=== PATIENT | female | born 1965 | race American Indian/Alaskan Native ===

== ENCOUNTER 2016-12-25 15:52 | Emergency (ER) | payer BC ==
--- NOTE | 2016-12-25 18:22 | Emergency Department Report ---
Chief Complaint: Abdominal Pain Stated Complaint: PAINFUL URINANTION W/ BLOOD/CHILLS Time Seen by Provider: 12/25/16 18:21 - HPI History of Present Illness: This is a 51-year-old female well-nourished well-developed here reporting that she is having burning urination 2 days with some blood in her urine. Last menstrual period was 12/08/2016. She is having pain in her lower abdomen at 10 out of 10 and its crampy. Patient is still getting her menstrual period but it was documented on triage chart that her last menstrual was 05/19/2013. She reports fever and chills. Denies any nausea or vomiting. No [id number] medication taken. - ROS Review of Systems: All systems are negative unless stated in HPI above - Exam Vital Signs: Vital Signs 12/25/16 17:23 Temperature 99.2 F Pulse Rate 79 Blood Pressure 170/97 O2 Sat by Pulse 98 Oximetry Respirations at 17 Physical Exam: Gen.: This is a 51-year-old female well-nourished well-developed in no acute distress Abdomen: Soft, tender to palpate pelvic area, no guarding or rebound tenderness. Positive bowel sounds in all quadrants and no CVA tenderness bilaterally. MSE screening note: Focused history and physical exam performed. Due to findings the following was ordered:see mdm ED Medical Decision Making - Medical Decision Making MDM: Patient screened by provider in triage area. Appropriate protocol initiated and patient to be seen in main ED by Dr. LIRA Disposition for MSE Condition: Stable Instructions: Abdominal Pain (ED)
[2016-12-25 23:00] LABS: Basophils % (Auto) 0.7 % (0.0-1.8); Eosinophils % (Auto) 1.4 % (0.0-4.3); Hematocrit 31.1 % (30.3-42.9); Hemoglobin 9.7 gm/dl (10.1-14.3); Mean Corpuscular HGB Conc 31 % (30-34); Mean Corpuscular Hemoglobin 23 pg (28-32); Mean Corpuscular Volume 74 fl (79-97); Platelet Count 275 K/mm3 (140-440); Red Blood Count 4.18 M/mm3 (3.65-5.03); Red Cell Distribution Width 18.8 % (13.2-15.2); White Blood Count 13.2 K/mm3 (4.5-11.0)
[2016-12-25 23:12] LABS: Alanine Aminotransferase 11 units/L (7-56); Albumin 3.9 g/dL (3.9-5); Albumin/Globulin Ratio 0.9 %; Alkaline Phosphatase 125 units/L (35-129); Anion Gap 17 mmol/L; BUN/Creatinine Ratio 13; Blood Urea Nitrogen 9 mg/dL (7-17); Calcium 8.9 mg/dL (8.4-10.2); Carbon Dioxide 19 mmol/L (22-30); Chloride 103.3 mmol/L (98-107); Glucose 91 mg/dL (65-100); Lipase 22 units/L (13-60); Potassium 4.1 mmol/L (3.6-5.0); Sodium 135 mmol/L (137-145); Total Protein 8.2 g/dL (6.3-8.2)
--- NOTE | 2016-12-26 07:34 | Emergency Department Report ---
ED Abdominal Pain HPI - General Chief Complaint: Abdominal Pain Stated Complaint: PAINFUL URINANTION W/ BLOOD/CHILLS Time Seen by Provider: 12/25/16 18:21 Source: patient, family Mode of arrival: Ambulatory Limitations: No Limitations - History of Present Illness Initial Comments: This is a 51-year-old female well-nourished well-developed here reporting that she is having burning urination 2 days with some blood in her urine. Last menstrual period was 12/08/2016. She is having pain in her lower abdomen at 10 out of 10 and its crampy. Patient is still getting her menstrual period but it was documented on triage chart that her last menstrual was 05/19/2013. She reports fever and chills. Denies any nausea or vomiting. No iteg-[id number] medication taken. She was able to tolerate oral liquids well. Denies any back pain.No [id number] medication taken. Denies any medical problem. MD Complaint: abdominal pain Onset/Timin -: days(s) Location: LLQ Radiation: none Migration to: no migration Severity: severe Severity scale (0 -10): 10 Quality: cramping, burning Consistency: intermittent Improves With: nothing Worsens With: nothing Context: other (Pt beleives uti) Associated Symptoms: fever, chills, dysuria, hematuria. denies: nausea, vomiting, diarrhea, constipation, hematemesis, hematochezia, melena, anorexia, syncope - Related Data LMP Date: 12/08/16 Previous Rx's Medication Instructions Recorded Last Taken Type HYDROcodone/APAP 5-325 [[place] 1 each PO Q8HR PRN #20 tablet 06/15/13 Unknown Rx 5/325 mg] Pantoprazole [Protonix] 20 mg PO BID #60 tablet. 06/15/13 Unknown Rx Naproxen [Naprosyn TAB] 500 mg PO BID PRN #10 tablet 12/26/16 Unknown Rx Nitrofurantoin Cecil/M-Cryst 100 mg PO Q12HR #14 capsule 12/26/16 Unknown Rx [Macrobid CAP] Phenazopyridine [Pyridium] 200 mg PO TID PRN #9 tab 12/26/16 Unknown Rx Allergies Allergy/AdvReac Type Severity Reaction Status Date / Time No Known Allergies Allergy Unverified 06/15/13 07:52 ED Review of Systems ROS: Stated complaint: PAINFUL URINANTION W/ BLOOD/CHILLS Other details as noted in HPI Comment: All other systems reviewed and negative Constitutional: chills, fever. denies: malaise, weakness Respiratory: no symptoms reported Cardiovascular: denies: chest pain, palpitations, dyspnea on exertion, edema, syncope, paroxysmal nocturnal dyspnea Gastrointestinal: abdominal pain. denies: nausea, vomiting, diarrhea, constipation, hematemesis, melena, hematochezia Genitourinary: dysuria, hematuria. denies: urgency, frequency, discharge, abnormal menses Musculoskeletal: denies: back pain, joint swelling, arthralgia, myalgia Skin: denies: rash Neurological: denies: headache, weakness, numbness, paresthesias, confusion, abnormal gait, vertigo ED Past Medical Hx - Past Medical History Previous Medical History?: Yes - Surgical History Past Surgical History?: No - Family History Family history: hypertension - Social History Smoking Status: Never Smoker Substance Use Type: None Other Social History: Patient divorce of his family - Medications Home Medications: Home Medications Medication Instructions Recorded Confirmed Last Taken Type HYDROcodone/APAP 5-325 [[place] 1 each PO Q8HR PRN #20 tablet 06/15/13 Unknown Rx 5/325 mg] Pantoprazole [Protonix] 20 mg PO BID #60 tablet. 06/15/13 Unknown Rx Naproxen [Naprosyn TAB] 500 mg PO BID PRN #10 tablet 12/26/16 Unknown Rx Nitrofurantoin Cecil/M-Cryst 100 mg PO Q12HR #14 capsule 12/26/16 Unknown Rx [Macrobid CAP] Phenazopyridine [Pyridium] 200 mg PO TID PRN #9 tab 12/26/16 Unknown Rx ED Physical Exam - General Limitations: No Limitations General appearance: alert, in no apparent distress - Head Head exam: Present: atraumatic, normocephalic, normal inspection - Eye Eye exam: Present: normal appearance, PERRL, EOMI. Absent: periorbital swelling , periorbital tenderness Pupils: Present: normal accommodation - ENT ENT exam: Present: normal exam, normal orophraynx, mucous membranes moist, TM's normal bilaterally, normal external ear exam - Neck Neck exam: Present: normal inspection, full ROM. Absent: tenderness, meningismus, lymphadenopathy - Respiratory Respiratory exam: Present: normal lung sounds bilaterally. Absent: respiratory distress, wheezes, rales, rhonchi, stridor, chest wall tenderness, decreased breath sounds, prolonged expiratory - Cardiovascular Cardiovascular Exam: Present: regular rate, normal rhythm, normal heart sounds. Absent: systolic murmur, diastolic murmur - GI/Abdominal GI/Abdominal exam: Present: soft, tenderness (left lower quadrant), normal bowel sounds. Absent: distended, guarding, rebound, rigid, hypoactive bowel sounds, organomegaly, mass, bruit, pulsatile mass, hernia - Extremities Exam Extremities exam: Present: normal inspection, full ROM, normal capillary refill. Absent: tenderness, pedal edema, joint swelling, calf tenderness - Back Exam Back exam: Present: normal inspection, full ROM. Absent: tenderness, CVA tenderness (R), CVA tenderness (L), muscle spasm, paraspinal tenderness, vertebral tenderness, rash noted - Neurological Exam Neurological exam: Present: alert, oriented X3, normal gait, reflexes normal. Absent: motor sensory deficit - Psychiatric Psychiatric exam: Present: normal affect, normal mood - Skin Skin exam: Present: warm, dry, intact, normal color. Absent: rash ED Course Vital Signs 12/25/16 12/26/16 12/26/16 17:23 00:37 07:50 Temperature 99.2 F 99.2 F 99.1 F Pulse Rate 79 106 H 91 H Respiratory 18 18 Rate Blood Pressure 170/97 158/91 Blood Pressure 152/95 [Left] O2 Sat by Pulse 98 99 100 Oximetry 12/26/16 08:04 Temperature Pulse Rate Respiratory 18 Rate Blood Pressure Blood Pressure [Left] O2 Sat by Pulse 100 Oximetry - Reevaluation(s) Reevaluation #1: 12/26/16 09:03 Patient and found to have urinary tract infection and she was orally challenged in the emergency room and able to tolerate liquids well. Patient had uneventful ED stay. She received Rocephin 1 g IM in emergency room for cystitis with hematuria and she also receive [place] 5/325 2 tablets by mouth. ED Medical Decision Making - Lab Data Result diagrams: 12/25/16 22:34 12/25/16 22:34 Lab Results 12/25/16 12/25/16 12/25/16 Range/Units 22:34 22:34 22:34 WBC 13.2 H (4.5-11.0) K/mm3 RBC 4.18 (3.65-5.03) M/mm3 Hgb 9.7 L (10.1-14.3) gm/dl Hct 31.1 (30.3-42.9) % MCV 74 L (79-97) fl MCH 23 L (28-32) pg MCHC 31 (30-34) % RDW 18.8 H (13.2-15.2) % Plt Count 275 (140-440) K/mm3 Lymph % (Auto) 16.7 (13.4-35.0) % Cecil % (Auto) 5.6 (0.0-7.3) % Eos % (Auto) 1.4 (0.0-4.3) % Baso % (Auto) 0.7 (0.0-1.8) % Lymph # 2.2 (1.2-5.4) K/mm3 Cecil # 0.7 (0.0-0.8) K/mm3 Eos # 0.2 (0.0-0.4) K/mm3 Baso # 0.1 (0.0-0.1) K/mm3 Seg Neutrophils % 75.6 H (40.0-70.0) % Seg Neutrophils # 10.0 H (1.8-7.7) K/mm3 Sodium 135 L (137-145) mmol/L Potassium 4.1 (3.6-5.0) mmol/L Chloride 103.3 (98-107) mmol/L Carbon Dioxide 19 L (22-30) mmol/L Anion Gap 17 mmol/L BUN 9 (7-17) mg/dL Creatinine 0.7 (0.7-1.2) mg/dL Estimated GFR > 60 ml/min BUN/Creatinine Ratio 13 % Glucose 91 (65-100) mg/dL Calcium 8.9 (8.4-10.2) mg/dL Total Bilirubin 0.40 (0.1-1.2) mg/dL AST 20 (5-40) units/L ALT 11 (7-56) units/L Alkaline Phosphatase 125 (35-129) units/L Total Protein 8.2 (6.3-8.2) g/dL Albumin 3.9 (3.9-5) g/dL Albumin/Globulin Ratio 0.9 % Lipase 22 (13-60) units/L HCG, Qual Negative (Negative) Urine Color (Yellow) Urine Turbidity (Clear) Urine pH (5.0-7.0) Ur Specific Strong (1.003-1.030) Urine Protein (Negative) mg/dL Urine Glucose (UA) (Negative) mg/dL Urine Ketones (Negative) mg/dL Urine Blood (Negative) Urine Nitrite (Negative) Urine Bilirubin (Negative) Urine Urobilinogen (<2.0) mg/dL Ur Leukocyte Esterase (Negative) Urine WBC (Auto) (0.0-6.0) /HPF Urine RBC (Auto) (0.0-6.0) /HPF U Epithel Cells (Auto) (0-13.0) /HPF Urine WBC Clumps /HPF Urine Mucus /HPF 12/26/16 Range/Units Unknown WBC (4.5-11.0) K/mm3 RBC (3.65-5.03) M/mm3 Hgb (10.1-14.3) gm/dl Hct (30.3-42.9) % MCV (79-97) fl MCH (28-32) pg MCHC (30-34) % RDW (13.2-15.2) % Plt Count (140-440) K/mm3 Lymph % (Auto) (13.4-35.0) % Cecil % (Auto) (0.0-7.3) % Eos % (Auto) (0.0-4.3) % Baso % (Auto) (0.0-1.8) % Lymph # (1.2-5.4) K/mm3 Cecil # (0.0-0.8) K/mm3 Eos # (0.0-0.4) K/mm3 Baso # (0.0-0.1) K/mm3 Seg Neutrophils % (40.0-70.0) % Seg Neutrophils # (1.8-7.7) K/mm3 Sodium (137-145) mmol/L Potassium (3.6-5.0) mmol/L Chloride (98-107) mmol/L Carbon Dioxide (22-30) mmol/L Anion Gap mmol/L BUN (7-17) mg/dL Creatinine (0.7-1.2) mg/dL Estimated GFR ml/min BUN/Creatinine Ratio % Glucose (65-100) mg/dL Calcium (8.4-10.2) mg/dL Total Bilirubin (0.1-1.2) mg/dL AST (5-40) units/L ALT (7-56) units/L Alkaline Phosphatase (35-129) units/L Total Protein (6.3-8.2) g/dL Albumin (3.9-5) g/dL Albumin/Globulin Ratio % Lipase (13-60) units/L HCG, Qual (Negative) Urine Color Yellow (Yellow) Urine Turbidity Clear (Clear) Urine pH 5.0 (5.0-7.0) Ur Specific Strong 1.025 (1.003-1.030) Urine Protein 100 mg/dl (Negative) mg/dL Urine Glucose (UA) Neg (Negative) mg/dL Urine Ketones Neg (Negative) mg/dL Urine Blood Lg (Negative) Urine Nitrite Pos (Negative) Urine Bilirubin Neg (Negative) Urine Urobilinogen < 2.0 (<2.0) mg/dL Ur Leukocyte Esterase Lg (Negative) Urine WBC (Auto) > 182.0 H (0.0-6.0) /HPF Urine RBC (Auto) 115.0 (0.0-6.0) /HPF U Epithel Cells (Auto) 13.0 (0-13.0) /HPF Urine WBC Clumps 1+ /HPF Urine Mucus Few /HPF Urine cultures - Medical Decision Making ED Course: Patient complaining of burning or urination 2 days, blood in the urine and having abdominal pain. She was found to have acute cystitis with hematuria with CBC of white count of 13.2 and shift to the left, chemistry reveal patient with sodium of 135 she is able to tolerate oral liquids. BUN and creatinine is normal. Qualitative hCG is negative. Patient with large amount of blood in urine positive nitrites, 100 protein, large amount of leukocyte Estrace, greater than 182 white blood cells . This was discussed with patient in detail regarding her lab results and urinary tract infection. Patient is able to tolerate oral liquids without any difficulties. She is not having any nausea or vomiting. I discussed with her that she will need to drink at least 2-3 L of water/cranberry juice per day to flush kidneys out and take antibiotic as prescribed. I also discussed with her she can take naproxen for abdominal cramping and for fever. I discussed with her that she'll be discharged home with prescription for Pyridium and antibiotic for bladder infection. Patient voiced understanding of.. She was given Discharge instruction and treatment plan and need to follow-up with her primary care physician in 2-3 days. Patient was given no cough 5/325 2 tablets and emergency room and Rocephin 1 g IM for UTI. She had no adverse reaction. Discharged home with family with prescription for Pyridium, naproxen and Macrobid. Critical care attestation.: If time is entered above; I have spent that time in minutes in the direct care of this critically ill patient, excluding procedure time. ED Disposition Clinical Impression: Acute cystitis with hematuria, Fever in adult, Dysuria Abdominal pain Qualifiers: Abdominal location: lower abdomen, unspecified Qualified Code(s): R10.30 - Lower abdominal pain, unspecified Disposition: TO HOME OR SELFCARE Is pt being admited?: No Does the pt Need Aspirin: No Condition: Stable Instructions: Abdominal Pain (ED), Dysuria (ED), Urinary Tract Infection in Women (ED), Fever in Adults (ED) Additional Instructions: Please increase your fluid intake to 2-3 L of water/cranberry juice per days Take antibiotic as prescribes Take naproxen as prescribed follow up with your PCP in 2-3 days Prescriptions: Naproxen [Naprosyn TAB] 500 mg PO BID PRN #10 tablet PRN Reason: Pain Nitrofurantoin [place]/M-Cryst [Macrobid CAP] 100 mg PO Q12HR #14 capsule Phenazopyridine [Pyridium] 200 mg PO TID PRN #9 tab PRN Reason: Urine burning Referrals: PRIMARY CARE, [Primary Care Provider] - 2-3 Days Forms: Work/School Release Form(ED)
[2016-12-26 07:51] VITALS: BP 152/95
[2016-12-26 08:01] LABS: Bilirubin,Urine NEG (Negative); Blood,Urine LG (Negative); Ketones,Urine NEG (Negative); Leukocyte Esterase,Urine LG (Negative); Mucus,Urine FEW /HPF; Nitrite,Urine POS (Negative); Urobilinogen,Urine < 2.0 mg/dL (<2.0)
[2016-12-26 08:03] LABS: WBC,Urine > 182.0 /HPF (0.0-6.0)
[2016-12-26] MEDS ORDERED: ROCEPHIN IM STA (08:36)
[2016-12-26] MEDS ORDERED: XYLOCAINE 1% MPF 5 mL INFILTRATI ONE (08:36)
[2016-12-26] MEDS ORDERED: NORCO 5/325 PO ONE (08:52)
== END 2016-12-26 09:28 | disposition home or self-care (01) ==
LOC: ED 15:52
DX: N30.01 Acute cystitis with hematuria (principal)
CPT/HCPCS: 36415; 80053; 81001; 83690; 84703; 85025; 87086; 96372; 99283; J0696